=== PATIENT | male | born 1960 | race Caucasian/White ===

== ENCOUNTER 2017-07-01 16:16 | Emergency (ER) | payer OTHER ==
[2017-07-01 16:42] VITALS: BP 182/102
[2017-07-01] MEDS ORDERED: Metoclopramide 10 MG/2 ML SDV IVPUSH ONE (17:03)
[2017-07-01] MEDS ORDERED: HYDROmorphone 0.5 MG/0.5 ML SYRINGE IVPUSH ONE (17:03)
--- NOTE | 2017-07-01 17:03 | EDM.PDOC ---
ED HPI GENERAL MEDICAL PROBLEM - General Chief Complaint: Abdominal Pain Stated Complaint: BACK PAIN Time Seen by Provider: 07/01/17 16:55 Source of Information: Reports: Patient History Limitations: Reports: No Limitations - History of Present Illness INITIAL COMMENTS - FREE TEXT/NARRATIVE: 56-year-old male presents the ED with acute onset of right flank pain last evening about 2000 hrs. Pain was bad enough that it kept him awake a good portion of the night pacing the floor. Mild nausea but he never did vomit. He thought perhaps he was constipated once again and has been taking a short medicine to make his bowels move. States bowels are moving but they're kind of ribbonlike. No blood is noted. Pain radiates around the right abdomen down towards the groin. Pain was severe last night 10 on a 10 and seemed to let up early this morning and is returned this afternoon again 10 out of 10. It is never gone away completely. He's noted his urine to be dark stephani in color and has a feeling of need to void at times but passes only small quantities of urine. No past history of renal stones. No past history of any abdominal surgery. Intermittent problems with constipation. Associated fever or chills. He has not noticed any blood in his urine. Believes his father had kidney stones. Onset: Sudden Onset Date: 06/30/17 Onset Time: 20:30 Duration: Hour(s): Location: Reports: Abdomen (Right right flank right hemiabdomen rating around to the right groin.), Back Quality: Reports: Sharp, Stabbing, Throbbing Severity: Severe (Pain is constant with intermittent strong colicky component) Improves with: Reports: None ( 8 or 9 out of 10.) Worsens with: Reports: None Context: Reports: Other (Sudden onset about 2030 hrs. last night.). Denies: Activity, Exercise, Sick Contact, Trauma Associated Symptoms: Reports: Nausea/Vomiting, Other (Mild nausea with no vomiting feeling of need to void but sometimes not able to do so. Frequent bowel movements today.) Treatments CERTIFIED REGISTERED NURSE PRACTITIONER: Reports: Other (see below) (1.) Flank Pain Score (Numeric/FACES): 5 - Related Data Allergies Allergy/AdvReac Type Severity Reaction Status Date / Time azithromycin [From Zithromax] Allergy Numbness Verified 05/28/16 05:26 Home Meds: Home Meds Fish Oil/[place]-3 Fatty Acids [Fish Oil] 1 each PO DAILY 07/01/17 [History] Levofloxacin [Levaquin] 500 mg PO DAILY #9 tab 07/01/17 [Rx] Lisinopril 10 mg PO DAILY 07/01/17 [History] metroNIDAZOLE [Flagyl] 500 mg PO Q8H #21 tab 07/01/17 [Rx] Past Medical History HEENT History: Reports: None, Other (See Below) Other HEENT History: wears glasses Cardiovascular History: Reports: Hypertension Genitourinary History: Reports: Other (See Below) Other Genitourinary History: decreased stream and decreased amounts recent PSA done - Infectious Disease History Infectious Disease History: Reports: Chicken Pox - Past Surgical History GI Surgical History: Reports: Colonoscopy, Polypectomy Social & Family History - Family History Family Medical History: Noncontributory Cardiac: Reports: CAD, HI GI: Reports: Chronic Constipation - Tobacco Use Smoking Status *Q: Never Smoker - Caffeine Use Caffeine Use: Reports: Coffee - Recreational Drug Use Recreational Drug Use: No - Living Situation & Occupation Living situation: Reports: Occupation: Employed ED ROS GENERAL - Review of Systems Review Of Systems: See Below Constitutional: Reports: Fatigue, Decreased Appetite (Not sleeping last night). Denies: Fever, Chills, Malaise, Weakness, Weight Loss HEENT: Reports: Glasses Respiratory: Reports: No Symptoms Cardiovascular: Reports: Blood Pressure Problem. Denies: Chest Pain, Claudication, Dyspnea on Exertion ( ), Edema, Lightheadedness, Orthopnea GI/Abdominal: Reports: Abdominal Pain (Diffuse right shannan-abdominal pain starting in his right flank coming around the right lateral abdominal wall to the mid lower right abdomen but not down to the groin.), Diarrhea, Nausea ( Stools are loose and ribbonlike but not diarrhea.). Denies: Constipation, Vomiting ( Comes and goes with the intensity of the pain) : Reports: Other (Urine perhaps is a little darker than normal but he hasn't drank much today.) Musculoskeletal: Reports: Back Pain Skin: Reports: No Symptoms (Continuous pain in the right flank area.) Neurological: Reports: No Symptoms Psychiatric: Reports: No Symptoms Hematologic/Lymphatic: Reports: No Symptoms Immunologic: Reports: No Symptoms ED EXAM, GI/ABD - Physical Exam Exam: See Below Exam Limited By: No Limitations General Appearance: Alert, WD/WN, Moderate Distress (Blood pressure is markedly elevated 180-102 due to pain.) Eyes: Bilateral: Normal Appearance Neck: Normal Inspection, Supple, Non-Tender, Full Range of Motion. No: Lymphadenopathy (L), Lymphadenopathy (R) Respiratory/Chest: No Respiratory Distress, Lungs Clear, Normal Breath Sounds, No Accessory Muscle Use Cardiovascular: Normal Peripheral Pulses, Regular Rate, Rhythm, No Edema, No Gallop, No Murmur, No Rub GI/Abdominal Exam: Normal Bowel Sounds, Soft, Non-Tender, No Organomegaly, No Abnormal Bruit, No Mass, Pelvis Stable, Other (No surgical scars. ) (Male) Exam: No Hernia Back Exam: Normal Inspection, Full Range of Motion, CVA Tenderness (R) (Mild of the right side but pain inferior to the right kidney.). No: CVA Tenderness (L) , Decreased Range of Motion, Muscle Spasm Extremities: Normal Inspection, Normal Range of Motion, Non-Tender, No Pedal Edema Neurological: Oriented, CN II-XII Intact, Normal Cognition Psychiatric: Normal Affect, Normal Mood Skin Exam: Warm, Dry, Intact, Normal Color, No Rash Course - Vital Signs Last Recorded V/S: Last Vital Signs Temp 36.7 C 07/01/17 16:39 Pulse 78 07/01/17 16:39 Resp 16 07/01/17 16:39 BP 182/102 H 07/01/17 16:39 Pulse Ox 96 07/01/17 16:39 - Orders/Labs/Meds Orders: Active Orders 24 hr Category Date Time Status Dextrose 5%-0.9% NaCl [Dextrose 5%-Normal Saline] 1,000 Med 07/01/17 18:45 Active ml IV ASDIRECTED Ketorolac [Toradol] Med 07/01/17 17:15 Active 30 mg IVPUSH ONETIME Levofloxacin/Dextrose 5%-Water [Levaquin in D5W 750 MG/ Med 07/01/17 19:29 Active 150 ML] 750 mg Premix Bag 1 bag IV ONETIME Sodium Chloride 0.9% [Normal Saline] 1,000 ml Med 07/01/17 17:15 Active IV ASDIRECTED Medication Orders Sodium Chloride (Normal Saline) 1,000 mls @ 150 mls/hr IV ASDIRECTED BERTRAND Last Admin: 07/01/17 17:21 Dose: 150 mls/hr Dextrose/Sodium Chloride (Dextrose 5%-Normal Saline) 1,000 mls @ 150 mls/hr IV ASDIRECTED BERTRAND Last Admin: 07/01/17 18:35 Dose: 150 mls/hr Levofloxacin/Dextrose 750 mg/ (Premix) 150 mls @ 100 mls/hr IV ONETIME ONE Stop: 07/01/17 20:58 Last Admin: 07/01/17 19:35 Dose: 100 mls/hr Ketorolac Tromethamine (Toradol) 30 mg IVPUSH ONETIME BERTRAND Last Admin: 07/01/17 17:21 Dose: 30 mg Labs: Laboratory Tests 07/01/17 07/01/17 07/01/17 Range/Units 16:35 16:35 16:35 WBC 11.90 H (4.23-9.07) K/mm3 RBC 5.72 (4.63-6.08) M/mm3 Hgb 15.9 (13.7-17.5) gm/L Hct 48.1 (40.1-51.0) % MCV 84.1 (79.0-92.2) fl MCH 27.8 (25.7-32.2) pg MCHC 33.1 (32.2-35.5) g/dl RDW Std Deviation 42.4 (35.1-43.9) fL Plt Count 195 (163-337) K/mm3 MPV 9.8 (9.4-12.3) fl Neutrophils % (Manual) 75 H (40-60) % Band Neutrophils % 0 (0-10) % Lymphocytes % (Manual) 16 L (20-40) % Atypical Lymphs % 0 % Monocytes % (Manual) 4 (2-10) % Eosinophils % (Manual) 5 (0.8-7.0) % Basophils % (Manual) 0 L (0.2-1.2) Platelet Estimate Adequate Plt Morphology Comment Normal RBC Morph Comment Normal Sodium 139 (136-145) mEq/L Potassium 3.5 (3.5-5.1) mEq/L Chloride 102 (98-107) mEq/L Carbon Dioxide 28 (21-32) mEq/L Anion Gap 12.5 (5-15) BUN 13 (7-18) mg/dL Creatinine 1.0 (0.7-1.3) mg/dL Est Cr Clr Drug Dosing 94.33 mL/min Estimated GFR (MDRD) > 60 (>60) mL/min BUN/Creatinine Ratio 13.0 L (14-18) Glucose 97 (74-106) mg/dL Calcium 8.6 (8.5-10.1) mg/dL Total Bilirubin 0.7 (0.2-1.0) mg/dL GGT 10 L (15-85) U/L AST 18 (15-37) U/L ALT 31 (16-63) U/L Alkaline Phosphatase 49 (46-116) U/L C-Reactive Protein 5.0 H* (<1.0) mg/dL Total Protein 7.7 (6.4-8.2) g/dl Albumin 3.8 (3.4-5.0) g/dl Globulin 3.9 gm/dL Albumin/Globulin Ratio 1.0 (1-2) Lipase 183 (73-393) U/L Urine Color (Yellow) Urine Appearance (Clear) Urine pH (5.0-8.0) Ur Specific [place] (1.005-1.030) Urine Protein (Negative) Urine Glucose (UA) (Negative) Urine Ketones (Negative) Urine Occult Blood (Negative) Urine Nitrite (Negative) Urine Bilirubin (Negative) Urine Urobilinogen (0.2-1.0) Ur Leukocyte Esterase (Negative) Urine RBC (0-5) /hpf Urine WBC (0-5) /hpf Ur Epithelial Cells (0-5) /hpf Urine Bacteria (FEW) /hpf Urine Mucus (FEW) /hpf 07/01/17 Range/Units 19:15 WBC (4.23-9.07) K/mm3 RBC (4.63-6.08) M/mm3 Hgb (13.7-17.5) gm/L Hct (40.1-51.0) % MCV (79.0-92.2) fl MCH (25.7-32.2) pg MCHC (32.2-35.5) g/dl RDW Std Deviation (35.1-43.9) fL Plt Count (163-337) K/mm3 MPV (9.4-12.3) fl Neutrophils % (Manual) (40-60) % Band Neutrophils % (0-10) % Lymphocytes % (Manual) (20-40) % Atypical Lymphs % % Monocytes % (Manual) (2-10) % Eosinophils % (Manual) (0.8-7.0) % Basophils % (Manual) (0.2-1.2) Platelet Estimate Plt Morphology Comment RBC Morph Comment Sodium (136-145) mEq/L Potassium (3.5-5.1) mEq/L Chloride (98-107) mEq/L Carbon Dioxide (21-32) mEq/L Anion Gap (5-15) BUN (7-18) mg/dL Creatinine (0.7-1.3) mg/dL Est Cr Clr Drug Dosing mL/min Estimated GFR (MDRD) (>60) mL/min BUN/Creatinine Ratio (14-18) Glucose (74-106) mg/dL Calcium (8.5-10.1) mg/dL Total Bilirubin (0.2-1.0) mg/dL GGT (15-85) U/L AST (15-37) U/L ALT (16-63) U/L Alkaline Phosphatase (46-116) U/L C-Reactive Protein (<1.0) mg/dL Total Protein (6.4-8.2) g/dl Albumin (3.4-5.0) g/dl Globulin gm/dL Albumin/Globulin Ratio (1-2) Lipase (73-393) U/L Urine Color Yellow (Yellow) Urine Appearance Clear (Clear) Urine pH 6.0 (5.0-8.0) Ur Specific [place] > or = 1.030 (1.005-1.030) Urine Protein Trace H (Negative) Urine Glucose (UA) Negative (Negative) Urine Ketones Negative (Negative) Urine Occult Blood Negative (Negative) Urine Nitrite Negative (Negative) Urine Bilirubin Negative (Negative) Urine Urobilinogen 0.2 (0.2-1.0) Ur Leukocyte Esterase Negative (Negative) Urine RBC 0-5 (0-5) /hpf Urine WBC 0-5 (0-5) /hpf Ur Epithelial Cells 0-5 (0-5) /hpf Urine Bacteria Occasional (FEW) /hpf Urine Mucus Moderate H (FEW) /hpf Meds: Medications Generic Name Dose Route Start Last Admin Trade Name Freq PRN Reason Stop Dose Admin Sodium Chloride 1,000 mls @ 150 mls/hr 07/01/17 17:15 03/25/18 17:21 Normal Saline IV 150 mls/hr ASDIRECTED BERTRAND Administration Dextrose/Sodium Chloride 1,000 mls @ 150 mls/hr 07/01/17 18:45 07/01/17 18:35 Dextrose 5%-Normal Saline IV 150 mls/hr ASDIRECTED BERTRAND Administration Levofloxacin/Dextrose 750 mg/ 150 mls @ 100 mls/hr 07/01/17 19:29 07/01/17 19 :35 Premix IV 07/01/17 20:58 100 mls/hr ONETIME ONE Administration Ketorolac Tromethamine 30 mg 07/01/17 17:15 07/01/17 17:21 Toradol IVPUSH 30 mg ONETIME BERTRAND Administration Discontinued Medications Generic Name Dose Route Start Last Admin Trade Name Kirsten PRN Reason Stop Dose Admin Hydromorphone HCl 1 mg 07/01/17 17:03 07/01/17 17:23 Dilaudid IVPUSH 07/01/17 17:04 1 mg ONETIME ONE Administration Metoclopramide HCl 10 mg 07/01/17 17:03 07/01/17 17:21 Reglan IVPUSH 07/01/17 17:04 10 mg ONETIME ONE Administration Metronidazole 500 mg 07/01/17 19:29 07/01/17 19:35 Flagyl PO 07/01/17 19:30 500 mg ONETIME ONE Administration - Radiology Interpretation Free Text/Narrative:: 56-year-old male presents to the ED with right flank pain radiate around the right upper abdomen down towards the right groin but not to the groin. This came on suddenly about 2030 hrs. last evening. It bothered her most the night in fact he was barely able to sleep at all. He had to pace the floor good portion of the night. Pain then eased up a good portion this morning but returned again this afternoon. He has noted his urine is little bit darker in color but he hasn't drank much today. His stomach is upset and he didn't want to take chance of eating he has not ate today either. Patient states his bowels are moving a little bit more frequently than normal but her ribbonlike but no diarrhea. States he does have a feeling of intermittent need to void but unable to do so at times or voids only small quantity. Has noted no noted any true hematuria. Has no history of kidney stone. History and examination reveals a benign abdominal exam with history of [place] with a right renal stone. Plan IV normal saline at 150 mils per hour. Given Reglan 10 mg IV for nausea relief Dilaudid 1 mg IV for pain relief and Toradol 30 mg IV for pain relief. CT scan had will be done per renal protocol urinalysis will be obtained when available. - Re-Assessments/Exams Free Text/Narrative Re-Assessment/Exam: 07/01/17 18:33: CT of the abdomen pelvis is been completed per renal protocol. Baez is done to note a CT done in May 28. Several small low- density lesions are seen within the liver with largest located inferiorly in the right lower lobe having Hounsfield unit of a cyst partially 1.1 cm in size. There is diffuse inflammatory change around the gallbladder which is an interval change from previous exam raising the possibility of cholecystitis. However patient does not have any tenderness on deep palpation around the gallbladder. Fluid-filled structures are seen within both kidneys either due to parapelvic cysts or possibly dilated collecting systems from functional UPJ obstruction which is a stable finding from previous CT exam there are cysts within the left kidney measuring about 16.6 cm. Small fat-containing lesion noted within the right mid kidney measuring 1 cm in size compatible with a incidental angiomyolipoma. Ureters show no dilatation or calcifications along their course. Pancreas is within normal limits spleen appears normal aorta shows no aneurysmal dilatation with mild atherosclerotic calcification no retroperitoneal adenopathy is identified bilateral fat-containing inguinal hernias moderate sized hiatal hernias appreciated. No pelvic masses are identified appendix is felt to be visualized and normal sigmoid and left-sided colonic diverticula are present there is mild inflammatory change being seen around one of these diverticula within the upper descending colon suspicious for mild diverticulitis. Bone window settings reviewed shows mild degenerative change within the cyst wall spine primarily within the apophyseal joints at L4- L5 and L5-S1. Therefore my clinical suspicion of a right renal stone is not confirmed on CT. I repeated his abdominal examination and again his shows no signs of acute cholecystitis or positive Pryor sign. His pain in his back is completely gone after the IV analgesia. He has had some intestinal colicky like pain in his mid lower abdomen. plan: labs will be done including a lipase and CRP. 07/01/17 19:13 Labs are back revealing an elevated white count of 11.90. Differential 75% neutrophils and 0% band cells. Hemoglobin is 15.9 with hematocrit of 48.1. Platelet count is 195,000. Sodium is 139 with potassium of 3.5. Chloride 102 with a bicarbonate of 28. And a gap is 12.5. BUN is 13. Creatinine is 1.0. GFR remains greater than 60. Glucose is 97. Bilirubin 0.7 with a GGT of 10 AST of 18 ALT of 31 and alkaline phosphatase of 49. No evidence of gallbladder related illness. C-reactive protein however is 5.0 suggesting an underlying infection. Lipase is 183. Labs suggest there is a low- grade infection likely that of diverticulitis. He has not yet voided therefore I cannot rule out a urinary tract infection but this is less likely in a male. 07/01/17 19:27 once again I reexamined abdomen there is no evidence of that he' s got acute cholecystitis. Therefore an infection is most likely coming from diverticulitis which is very mild at the junction of the descending and sigmoid colon. Place on Levaquin 750 mg IV and Flagyl 500 mg orally. I will then place him on Levaquin 500 mg by mouth daily for another 9 days and Flagyl 500 mg 3 times a day for 7 days. He will get be given Percocet 5/325 milligram tablets 10 from the [employer] machine. 07/01/17 20:16: Urinalysis is finding back in it is completely normal as well with no signs of infection. Departure - Departure Time of Disposition: 21:10 Disposition: Home, Self-Care 01 Condition: Fair Clinical Impression: Abdominal pain Qualifiers: Abdominal location: right upper quadrant Qualified Code(s): R10.11 - Right upper quadrant pain Diverticulitis large intestine Qualifiers: Diverticulitis bleeding: without bleeding Diverticulitis complication: without perforation or abscess Qualified Code(s): K57.32 - Diverticulitis of large intestine without perforation or abscess without bleeding - Discharge Information Prescriptions: Levofloxacin [Levaquin] 500 mg PO DAILY #9 tab metroNIDAZOLE [Flagyl] 500 mg PO Q8H #21 tab Referrals: PCP,None [Primary Care Provider] - Forms: ED Department Discharge Additional Instructions: Evaluation in the emergency room today in regards to development of severe right flank pain radiating around the upper abdomen, and then intermittent diffuse abdominal pain over to the left side of the abdomen. This started suddenly last evening and was quite bad overnight and then became quite bad again this afternoon. You have no history of kidney stones although the history was strongly suggestive of a kidney stone on the right side. CT scan of the abdomen and pelvis was carried out and does not reveal any evidence of kidney stones. CT suggested some mild inflammation or fluid around the gallbladder but you have no signs of gallbladder disease on examination or on lab tests.. CT did identify an area of sigmoid diverticulitis, more so in the left upper quadrant of the abdomen with evidene of a developing infection. This correlated with your lab tests which revealed a mildly elevated white blood cell count and markers for infection elevated suggesting bacterial infection. The urinalysis came back clear. Therefore you were treated in the ED with initial dose of antibiotic Levaquin 750 mg IV and first tablet of oral Flagyl 500 mg. Initially treated with pain medication Dilaudid 1 mg with Reglan 10 mg and Toradol 30 mg IV for suspect kidney stone which did relieve your abdominal pain to good extent. He will be discharged on Levaquin 500 mg once daily with the next tablet due at suppertime tomorrow night. This is to be taken for 9 more days. Flagyl tablet is 500 mg 3 times a day for the next 7 days with the first tablet due tomorrow morning. Occasion Percocet 5/325 milligrams tabs one or 2 every 4-6 hours if needed for pain relief over the next 2 days. Return to hospital if you develop nausea or vomiting or severe fever/ chills or are not markedly improved in 48-[address] also reveals still extensive stool particularly throughout the right hemicolon in parts of the transverse colon in the upper abdomen right upper quadrant of the abdomen which may be accounting for the pain that you're experiencing in this area. I would suggest using Citroma 7 ounces mixed with juice of choice tomorrow morning to get the bowel was cleansed out. I would then advise starting MiraLAX powder 17 g once daily to prevent constipation issues from occurring and also lessen the likelihood of you developing diverticulitis in the future. - My Orders Last 24 Hours: My Active Orders 07/01/17 17:15 Ketorolac [Toradol] 30 mg IVPUSH ONETIME Sodium Chloride 0.9% [Normal Saline] 1,000 ml IV ASDIRECTED 07/01/17 18:45 Dextrose 5%-0.9% NaCl [Dextrose 5%-Normal Saline] 1,000 ml IV ASDIRECTED 07/01/17 19:29 Levofloxacin/Dextrose 5%-Water [Levaquin in D5W 750 MG/150 ML] 750 mg Premix Bag 1 bag IV ONETIME - Assessment/Plan Last 24 Hours: My Active Orders 07/01/17 17:15 Ketorolac [Toradol] 30 mg IVPUSH ONETIME Sodium Chloride 0.9% [Normal Saline] 1,000 ml IV ASDIRECTED 07/01/17 18:45 Dextrose 5%-0.9% NaCl [Dextrose 5%-Normal Saline] 1,000 ml IV ASDIRECTED 07/01/17 19:29 Levofloxacin/Dextrose 5%-Water [Levaquin in D5W 750 MG/150 ML] 750 mg Premix Bag 1 bag IV ONETIME
[2017-07-01] MEDS ORDERED: Sodium Chloride 0.9% 1,000 ML IV SCH (17:15)
[2017-07-01] MEDS ORDERED: Ketorolac 30 MG/ML SDV IVPUSH SCH (17:15)
--- NOTE | 2017-07-01 18:03 | CT ---
CT abdomen and pelvis Technique: Multiple axial sections were obtained from above the kidneys inferiorly to the pubic symphysis. Intravenous and oral contrast was not utilized. Comparison: Previous right upper quadrant abdominal ultrasound of 05/28/[address] abdomen and pelvis study of 05/28/16. Findings: Several small low-density lesions are seen within the liver with largest located inferiorly within the right lobe having Hounsfield unit measurements of a cyst and measuring approximately 1.1 cm in size. Diffuse inflammatory change is identified around the gallbladder which is an interval change from previous exam raising the possibility of cholecystitis. Adrenal glands show no nodule. Fluid-filled structures are seen within both kidneys either due to parapelvic cysts or possibly dilated collecting systems from functional UPJ obstruction which is a stable finding from previous CT exam. Low-density lesion with Hounsfield unit measurements of a cyst is seen with left kidney measuring about 1.6 cm. Small fat-containing lesion noted within the mid right kidney measuring 1 cm in size compatible with an incidental angiomyolipoma. Ureters show no dilatation. No abnormal calcifications are seen along the course of the ureters. Pancreas is within normal limits. Spleen appears within normal limits. Aorta shows no aneurysmal dilatation with mild atherosclerotic calcification. No retroperitoneal adenopathy is seen. Fat-containing bilateral inguinal hernias are incidentally noted. No pelvic mass or adenopathy is seen. Appendix felt to be visualized and appears within normal limits in size. Sigmoid and left-sided colonic diverticuli are seen. There is mild inflammatory change being seen around one of these diverticuli within the upper descending colon suspicious for mild diverticulitis. Bone window settings were reviewed which shows mild degenerative change within the spine primarily within the apophyseal joints at L4-L5 and L5-S1. Impression: 1. Inflammatory change around the gallbladder raising the possibility of cholecystitis. 2. Slight inflammatory change around a diverticuli within the upper descending colon compatible with mild diverticulitis. 3. Fluid-filled structures within both kidneys either due to functional UPJ obstructions or parapelvic cysts. This finding is stable from previous study. 4. Other incidental findings. Diagnostic code #3
[2017-07-01] MEDS ORDERED: Dextrose 5%-0.9% NaCl 1,000 ML IV SCH (18:45)
[2017-07-01] MEDS ORDERED: Levofloxacin/Dextrose 5%-Water 750 MG in Premix Bag 1 BAG IV ONE (19:29)
[2017-07-01] MEDS ORDERED: metroNIDAZOLE 500 MG Tab PO ONE (19:29)
[2017-07-01] MEDS ORDERED: Magnesium Citrate Solution 296 ML Bottle PO ONE (20:24)
== END 2017-07-01 21:21 | disposition home or self-care (01) ==
LOC: JD.ED 16:16
DX: K57.32 Diverticulitis of large intestine without perforation or abscess without bleeding (principal); I10 Essential (primary) hypertension; Z88.1 Allergy status to other antibiotic agents; Z79.899 Other long term (current) drug therapy
CPT/HCPCS: 36415; 74176; 80053; 81001; 82977; 83690; 85025; 86140; 96361; 96365; 96375; 99284; A9270; J1170; J1885; J1956; J2765; J7040; J7042

== ENCOUNTER 2020-11-25 18:46 | Emergency (ER) | payer BC, OTHER ==
[2020-11-25] MEDS ORDERED: Sodium Chloride 0.9% 10 ML Syringe FLUSH PRN (18:56)
[2020-11-25] MEDS ORDERED: diphenhydrAMINE 50 MG/ML SDV IVPUSH ONE (18:57)
[2020-11-25] MEDS ORDERED: methylPREDNISolone Sodium Succinate 125 MG/2 ML SDV IVPUSH ONE (18:57)
[2020-11-25] MEDS ORDERED: Famotidine 20 MG/2 ML SDV IVPUSH ONE (18:57)
[2020-11-25 19:00] VITALS: BP 165/92; PULSE 75
--- NOTE | 2020-11-25 19:15 | EDM.PDOC ---
ED HPI GENERAL MEDICAL PROBLEM - General Chief Complaint: ENT Problem Stated Complaint: SOB/THROAT COMPLAINT Time Seen by Provider: 11/25/20 18:51 Source of Information: Reports: Patient History Limitations: Reports: No Limitations - History of Present Illness INITIAL COMMENTS - FREE TEXT/NARRATIVE: The patient presents with a sore throat, throat swelling and neck swelling. He said this morning he started having a sore throat and it has gotten worse. He can hardly talk. He has mild shortness of breath. He has no fever, chills, cough, chest pain, shortness of breath. He does not think he is reacting to anything. Onset: Today Duration: Hour(s): Location: Reports: Neck, Other (throat) Quality: Reports: Sharp Severity: Moderate Improves with: Reports: None Worsens with: Reports: None Associated Symptoms: Reports: Shortness of Breath. Denies: Chest Pain, Cough, Fever/Chills, Headaches, Nausea/Vomiting - Related Data Allergies Allergy/AdvReac Type Severity Reaction Status Date / Time azithromycin [From Zithromax] Allergy Numbness Verified 11/25/20 19:00 Home Meds: Home Meds Fish Oil/[place]-3 Fatty Acids [Fish Oil] 1 each PO DAILY 07/01/17 [History] Lisinopril 10 mg PO DAILY 07/01/17 [History] levoFLOXacin [Levaquin] 500 mg PO DAILY #9 tab 07/01/17 [Rx] metroNIDAZOLE [Flagyl] 500 mg PO Q8H #21 tab 07/01/17 [Rx] predniSONE [Prednisone] 40 mg PO DAILY #10 tablet 11/25/20 [Rx] Past Medical History HEENT History: Reports: Other (See Below) Other HEENT History: wears glasses Cardiovascular History: Reports: Afib, Hypertension Genitourinary History: Reports: Other (See Below) Other Genitourinary History: decreased stream and decreased amounts recent PSA done Endocrine/Metabolic History: Reports: Obesity/BMI 30+ - Infectious Disease History Infectious Disease History: Reports: Chicken Pox - Past Surgical History Cardiovascular Surgical History: Reports: Cardiac Ablation GI Surgical History: Reports: Colonoscopy, Polypectomy Social & Family History - Family History Family Medical History: No Pertinent Family History Cardiac: Reports: CAD, GA GI: Reports: Chronic Constipation - Tobacco Use Tobacco Use Status *Q: Never Tobacco User Second Hand Smoke Exposure: No - Caffeine Use Caffeine Use: Reports: Coffee - Recreational Drug Use Recreational Drug Use: No - Living Situation & Occupation Living situation: Reports: Occupation: Employed ED ROS ENT - Review of Systems Review Of Systems: See Below Constitutional: Reports: No Symptoms HEENT: Reports: Throat Pain, Throat Swelling Respiratory: Reports: Shortness of Breath. Denies: Cough Cardiovascular: Reports: No Symptoms Endocrine: Reports: No Symptoms GI/Abdominal: Reports: No Symptoms : Reports: No Symptoms ED EXAM, ENT - Physical Exam Exam: See Below Exam Limited By: No Limitations General Appearance: Alert, No Apparent Distress Ears: Normal External Exam Nose: Normal Inspection Mouth/Throat: Other (Uvula has edema) Head: Atraumatic, Normocephalic Neck: Lymphadenopathy (L), Lymphadenopathy (R), Other (tenderness and swelling to both sides more to the left) Respiratory/Chest: No Respiratory Distress, Lungs Clear, Normal Breath Sounds Cardiovascular: Regular Rate, Rhythm, No Edema, No Murmur GI/Abdominal: Soft, Non-Tender, No Organomegaly, No Mass Back: Normal Inspection Extremities: Normal Inspection Course - Vital Signs Last Recorded V/S: Last Vital Signs Temp 97 F 11/25/20 18:53 Pulse 75 11/25/20 18:53 Resp 18 11/25/20 18:53 BP 165/92 H 11/25/20 18:53 Pulse Ox 95 11/25/20 18:53 - Orders/Labs/Meds Orders: Active Orders 24 hr Category Date Time Status Cardiac Monitoring [RC] . DIRECTED Care 11/25/20 18:56 Active Peripheral IV Care [RC] . DIRECTED Care 11/25/20 18:56 Active BLOOD CULTURE [MREF] Stat Lab 11/25/20 19:14 Received BLOOD CULTURE [MREF] Stat Lab 11/25/20 19:23 Received Sodium Chloride 0.9% [Saline Flush] Med 11/25/20 19:30 Active 10 ml FLUSH ASDIRECTED Sodium Chloride 0.9% [Saline Flush] Med 11/25/20 18:56 Active 10 ml FLUSH ASDIRECTED PRN Blood Culture x2 Reflex Set [OM.PC] Stat Oth 11/25/20 18:58 Ordered Peripheral IV Insertion Adult [OM.PC] Stat Oth 11/25/20 18:56 Ordered Medication Orders Sodium Chloride (Sodium Chloride 0.9% 10 Ml Syringe) 10 ml FLUSH ASDIRECTED PRN PRN Reason: Keep Vein Open Last Admin: 11/25/20 19:12 Dose: 10 ml Documented by: FAIZA Sodium Chloride (Sodium Chloride 0.9% 10 Ml Syringe) 10 ml FLUSH ASDIRECTED BERTRAND Last Admin: 11/25/20 19:47 Dose: 10 ml Documented by: CAROLINE Labs: Laboratory Tests 11/25/20 11/25/20 11/25/20 Range/Units 19:06 19:09 19:14 WBC 7.78 (4.23-9.07) K/mm3 RBC 5.02 (4.63-6.08) M/mm3 Hgb 14.9 (13.7-17.5) gm/dl Hct 44.6 (40.1-51.0) % MCV 88.8 D (79.0-92.2) fl MCH 29.7 (25.7-32.2) pg MCHC 33.4 (32.2-35.5) g/dl RDW Std Deviation 44.0 H (35.1-43.9) fL Plt Count 170 (163-337) K/mm3 MPV 9.5 (9.4-12.3) fl Neut % (Auto) 65.6 (34.0-67.9) % Lymph % (Auto) 17.4 L (21.8-53.1) % Rogers % (Auto) 9.1 (5.3-12.2) % Eos % (Auto) 7.2 H (0.8-7.0) Baso % (Auto) 0.3 (0.1-1.2) % Neut # (Auto) 5.11 (1.78-5.38) K/mm3 Lymph # (Auto) 1.35 (1.32-3.57) K/mm3 Rogers # (Auto) 0.71 (0.30-0.82) K/mm3 Eos # (Auto) 0.56 H (0.04-0.54) K/mm3 Baso # (Auto) 0.02 (0.01-0.08) K/mm3 PT (9.7-12.0) SECONDS INR APTT (21.7-31.4) SECONDS Sodium (136-145) mEq/L Potassium (3.5-5.1) mEq/L Chloride (98-107) mEq/L Carbon Dioxide (21-32) mEq/L Anion Gap (5-15) BUN (7-18) mg/dL Creatinine (0.7-1.3) mg/dL Est Cr Clr Drug Dosing mL/min Estimated GFR (MDRD) (>60) mL/min BUN/Creatinine Ratio (14-18) Glucose (70-99) mg/dL Lactic Acid (0.4-2.0) mmol/L Calcium (8.5-10.1) mg/dL Total Bilirubin (0.2-1.0) mg/dL AST (15-37) U/L ALT (16-63) U/L Alkaline Phosphatase (46-116) U/L C-Reactive Protein (<1.0) mg/dL Total Protein (6.4-8.2) g/dl Albumin (3.4-5.0) g/dl Globulin gm/dL Albumin/Globulin Ratio (1-2) SARS-CoV-2 RNA (ANGELA) Negative (NEGATIVE) Group A Strep (PCR) Not detected (NOT DETECT) 11/25/20 11/25/20 11/25/20 Range/Units 19:14 19:14 19:14 WBC (4.23-9.07) K/mm3 RBC (4.63-6.08) M/mm3 Hgb (13.7-17.5) gm/dl Hct (40.1-51.0) % MCV (79.0-92.2) fl MCH (25.7-32.2) pg MCHC (32.2-35.5) g/dl RDW Std Deviation (35.1-43.9) fL Plt Count (163-337) K/mm3 MPV (9.4-12.3) fl Neut % (Auto) (34.0-67.9) % Lymph % (Auto) (21.8-53.1) % Rogers % (Auto) (5.3-12.2) % Eos % (Auto) (0.8-7.0) Baso % (Auto) (0.1-1.2) % Neut # (Auto) (1.78-5.38) K/mm3 Lymph # (Auto) (1.32-3.57) K/mm3 Rogers # (Auto) (0.30-0.82) K/mm3 Eos # (Auto) (0.04-0.54) K/mm3 Baso # (Auto) (0.01-0.08) K/mm3 PT 10.5 (9.7-12.0) SECONDS INR 0.98 APTT 27.8 (21.7-31.4) SECONDS Sodium 143 (136-145) mEq/L Potassium 3.6 (3.5-5.1) mEq/L Chloride 106 (98-107) mEq/L Carbon Dioxide 29 (21-32) mEq/L Anion Gap 11.6 (5-15) BUN 20 H (7-18) mg/dL Creatinine 1.2 (0.7-1.3) mg/dL Est Cr Clr Drug Dosing 74.91 mL/min Estimated GFR (MDRD) > 60 (>60) mL/min BUN/Creatinine Ratio 16.7 (14-18) Glucose 101 H (70-99) mg/dL Lactic Acid 1.1 (0.4-2.0) mmol/L Calcium 8.2 L (8.5-10.1) mg/dL Total Bilirubin 0.4 (0.2-1.0) mg/dL AST 21 (15-37) U/L ALT 48 (16-63) U/L Alkaline Phosphatase 51 (46-116) U/L C-Reactive Protein 0.3 (<1.0) mg/dL Total Protein 7.0 (6.4-8.2) g/dl Albumin 3.6 (3.4-5.0) g/dl Globulin 3.4 gm/dL Albumin/Globulin Ratio 1.1 (1-2) SARS-CoV-2 RNA (ANGELA) (NEGATIVE) Group A Strep (PCR) (NOT DETECT) Meds: Medications Generic Name Dose Route Start Last Admin Trade Name Freq PRN Reason Stop Dose Admin Sodium Chloride 10 ml 11/25/20 18:56 11/25/20 19:12 Sodium Chloride 0.9% 10 Ml Syringe FLUSH 10 ml ASDIRECTED PRN Administration Keep Vein Open Sodium Chloride 10 ml 11/25/20 19:30 11/25/20 19:47 Sodium Chloride 0.9% 10 Ml Syringe FLUSH 10 ml ASDIRECTED BERTRAND Administration Discontinued Medications Generic Name Dose Route Start Last Admin Trade Name Freq PRKira Reason Stop Dose Admin C1 Esterase Inhibitor (Human) 2,500 units 11/25/20 19:30 11/25/20 19:53 C1 Esterase Inhibitor 500 Unit Vial IV 11/25/20 19:31 2,500 units ONETIME ONE Administration Diphenhydramine HCl 50 mg 11/25/20 18:57 11/25/20 19:09 Diphenhydramine 50 Mg/Ml Sdv IVPUSH 11/25/20 18:58 50 mg ONETIME ONE Administration Famotidine 20 mg 11/25/20 18:57 11/25/20 19:09 Famotidine 20 Mg/2 Ml Sdv IVPUSH 11/25/20 18:58 20 mg ONETIME ONE Administration Iopamidol 100 ml 11/25/20 19:24 11/25/20 19:47 Iopamidol 612 Mg/Ml 100 Ml Bottle IVPUSH 11/25/20 19:25 80 ml ONETIME ONE Administration Methylprednisolone Sodium Succinate 125 mg 11/25/20 18:57 11/25/20 19:09 Methylprednisolone Sodium Succinate 125 Mg/2 Ml Sdv IVPUSH 11/25/20 18:58 125 mg ONETIME ONE Administration - Re-Assessments/Exams Free Text/Narrative Re-Assessment/Exam: 11/25/20 19:15 I ordered an IV saline lock, solu-medrol 125mg IV, benadryl 50mg IV, pepcid 20mg IV, labs, blood cultures lactic acid, strep, COVID [address] of his neck soft tissue. 11/25/20 22:00 He is on lisinopril. He is having angioedema from that. His CBC and CMP look good. His COVID and strep is negative. His CT shows a prominent nonspecific thickening within the patient's uvula. Mucosal thickening within the paranasal sinuses presumably representing chronic sinusitis. No other acute abnormality is appreciated on CT study of the neck. I did order Berinert 2,500units IV. He can now talk. There is some swelling in his uvula still. He can breath good now. I will have him stop the lisinopril and call his doctor get on something else. I will discharge him home on some prednisone. Departure - Departure Time of Disposition: 22:10 Disposition: Home, Self-Care 01 Condition: Good Clinical Impression: Allergy to lisinopril Angioedema Qualifiers: Encounter type: initial encounter Qualified Code(s): T78.3XXA - Angioneurotic edema, initial encounter - Discharge Information *PRESCRIPTION DRUG MONITORING PROGRAM REVIEWED*: Not Applicable *COPY OF PRESCRIPTION DRUG MONITORING REPORT IN PATIENT [place]: Not Applicable Prescriptions: predniSONE [Prednisone] 40 mg PO DAILY #10 tablet Referrals: Maria Del Carmen Robertson NP [Primary Care Provider] - 1 Week Forms: ED Department Discharge Additional Instructions: Try to drink ice cold drinks for a few days. Avoid anything very hot. Take the prednisone daily for 5 days. Do not take lisinopril anymore or any other BERHANE inhibitors. Please return if you are worse. Sepsis Event Note (ED) - Evaluation Sepsis Screening Result: No Definite Risk - Focused Exam Vital Signs: Vital Signs Temp Pulse Resp BP Pulse Ox 11/25/20 18:53 97 F 75 18 165/92 H 95 - My Orders Last 24 Hours: My Active Orders 11/25/20 18:56 Cardiac Monitoring [RC] . DIRECTED Peripheral IV Care [RC] . DIRECTED Sodium Chloride 0.9% [Saline Flush] 10 ml FLUSH ASDIRECTED PRN Peripheral IV Insertion Adult [OM.PC] Stat 11/25/20 18:58 Blood Culture x2 Reflex Set [OM.PC] Stat 11/25/20 19:14 BLOOD CULTURE [MREF] Stat 11/25/20 19:23 BLOOD CULTURE [MREF] Stat 11/25/20 19:30 Sodium Chloride 0.9% [Saline Flush] 10 ml FLUSH ASDIRECTED - Assessment/Plan Last 24 Hours: My Active Orders 11/25/20 18:56 Cardiac Monitoring [RC] . DIRECTED Peripheral IV Care [RC] . DIRECTED Sodium Chloride 0.9% [Saline Flush] 10 ml FLUSH ASDIRECTED PRN Peripheral IV Insertion Adult [OM.PC] Stat 11/25/20 18:58 Blood Culture x2 Reflex Set [OM.PC] Stat 11/25/20 19:14 BLOOD CULTURE [MREF] Stat 11/25/20 19:23 BLOOD CULTURE [MREF] Stat 11/25/20 19:30 Sodium Chloride 0.9% [Saline Flush] 10 ml FLUSH ASDIRECTED
[2020-11-25] MEDS ORDERED: Iopamidol 612 MG/ML 100 ML Bottle IVPUSH ONE (19:24)
[2020-11-25] MEDS ORDERED: Sodium Chloride 0.9% 10 ML Syringe FLUSH SCH (19:30)
--- NOTE | 2020-11-25 20:05 | CT ---
CT neck Technique: Multiple axial sections were obtained from the top of the orbits inferiorly to the top of the aortic arch. Reconstructed coronal and sagittal images were obtained. Intravenous contrast was utilized. Comparison: No prior neck imaging is available. Findings: Moderate mucosal thickening is seen within the frontal sinuses, ethmoid and maxillary sinuses. Sphenoid sinus also shows mild mucosal thickening. Mastoid sinuses appeared to be clear. Visualized portions of the orbits are within normal limits. Parotid salivary glands and submandibular salivary glands appear within normal limits. Small lymph nodes are seen which are believed to be within normal limits. Visualized lung apices are clear. Thyroid gland shows no discrete nodule. Normal enhancing vasculature appears to be present. Prevertebral soft tissues are normal. Diffuse nonspecific thickening is seen within the patient's uvula. Epiglottis is normal in size. Bone window settings were reviewed which show slight degenerative change within the cervical spine. No acute osseous abnormality is appreciated. Impression: 1. Prominent nonspecific thickening within the patient's uvula. 2. Mucosal thickening within the paranasal sinuses presumably representing chronic sinusitis. 3. No other acute abnormality is appreciated on CT study of the neck. Diagnostic code #3
== END 2020-11-25 22:18 | disposition home or self-care (01) ==
LOC: JD.ED 18:46
DX: T78.3XXA Angioneurotic edema, initial encounter (principal); I48.91 Unspecified atrial fibrillation; I10 Essential (primary) hypertension; E66.9 Obesity, unspecified; Z88.1 Allergy status to other antibiotic agents; Z20.822 Contact with and (suspected) exposure to COVID-19; Z68.36 Body mass index [BMI] 36.0-36.9, adult
CPT/HCPCS: 36415; 70491; 80053; 83605; 85025; 85610; 85730; 86140; 87040; 87635; 87651; 96374; 96375; 99284; J0598; J1200; J2930; J3490; Q9967; U0002